=== PATIENT | female | born 1970 | race Caucasian/White ===

== ENCOUNTER → 2022-03-31 | Day surgery (SDC) | payer BC ==
--- NOTE | 2022-03-31 11:40 | RAD REPORT ---
EXAM DESCRIPTION: US - Breast Core BX w/US Guidance - 03/31/2022 9:20 am CLINICAL HISTORY: N63.0, approximately 15 mm oval mass 5 o'clock right breast COMPARISON: Mammogram and ultrasound studies 03/12/2022 TECHNIQUE: The patient presents for ultrasound-guided biopsy of a previously detailed lower inner qu adrant right breast mass. The ultrasound-guided core biopsy procedure, risks and alternatives were discussed with the patient i n detail. After answering all questions, both oral and written consent were obtained. Time out proced ure was performed. The patient had no contraindicated allergy or medication history. Preliminary imaging identified the oval hypoechoic mass in the 5 o'clock right breast near the infram ammary fold. The right breast was prepped and draped in the usual sterile fashion. From a(n) medial a pproach, skin and deeper tissues were anesthetized with 1% lidocaine. Under direct sonographic visual ization a 14 gauge vacuum assisted core biopsy needle was advanced and placed at the margin of the ma ss. There were a total of 4 core biopsies obtained under direct sonographic guidance. The mass did ap pear to have distortion in contour supporting transit of the biopsy needle through the small mass. At the conclusion of the procedure a localization clip was placed under sonographic guidance. Post biopsy imaging showed no hematoma or measurable bleeding within the breast. Hemostasis was obtai terri at the skin site with a sterile bandage placed. Post procedure care and precaution instructions were given to the patient. IMPRESSION: 1. Ultrasound-guided core biopsy was performed of the lower inner quadrant right breast mass. All obtained material was given to pathology for histologic assessment. 2. Post biopsy localization clip was placed under ultrasound guidance.
== END ==
LOC: DS 07:59
PROVIDERS: ATTEND Family Medicine
DX: D24.1 Benign neoplasm of right breast (principal)
CPT/HCPCS: 19083; 88305